=== PATIENT | female | born 1960 | race Caucasian/White ===

== ENCOUNTER → 2017-07-04 | Outpatient (CLI) | payer BC, OTHER ==
[~2017-07-04] VITALS: Ht 177.8 cm; Wt 89.4 kg
[~2017-07-04] MED LIST: BALSALAZIDE PO; FLEXERIL PO; HYDROCODON-ACE1 EAC7 PO; IBUPROFEN 200200 M1 PO; VIVELLE-DOT1 EAC1 TOP
--- NOTE | ~2017-07-04 | HPC ---
[facility] [place] [address] PAIN MANAGEMENT CONSULTATION Name: FRANSISCA PUCKETT Room #: REG [facility].#: [id number] Admission: 07/04/17 Attend Phys: Torey Altamirano DO Discharge: Date of : 62 Report #: [id number] THIS REPORT FOR: //name// CC: Victorina Altamirano DATE OF SERVICE: 07/04/2017 REFERRING PHYSICIAN: Paulina Calvillo MD CHIEF COMPLAINT: Low back pain, right lower extremity pain with paresthesias. HISTORY OF PRESENT ILLNESS: As you know, the patient is a 57-year-old female who reports acute onset of low back pain, right lower extremity pain with paresthesias that presented 04/22/2017. The patient denies any specific known injury, but states that her pain began after a fall while skiing. She states that the pain improved initially with ice therapy, but then began to experience increasing back pain radiating down the leg to her foot. She states that pain begins in the buttock, radiates down the leg, radiates onto the great toe periodically and this is what led to her concern and further followup. She states pain is most bothersome at night, difficulty with sitting down and standing still. She has been in physical therapy twice a week for weeks, this started in April, but has not improved her symptoms. Due to lack of improvement with conservative treatment, the patient was subsequently referred to our clinic for evaluation for suspected lumbar radiculopathy. She indicates pain is constant, describes the pain as aching, numbness, and tingling; places current pain score 6-7/10, daily average at 8-10/10, worst pain has been is 10/10. The patient states that sitting, lying down and repositioning tends to exacerbate symptoms, standing and physical therapy has provided some improvement in symptoms. She has been referred to our clinic to discuss treatment options for suspected lumbar radiculopathy. PAST MEDICAL HISTORY: 1. Low estrogen levels. 2. Chronic colon problems. PAST SURGICAL HISTORY: 1. Neuroma excision. 2. Hysterectomy. SOCIAL HISTORY: The patient denies tobacco, IV or illicit drug use, admits to approximately 1-2 alcoholic beverages per day. 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 She is working, not receiving workmen's compensation nor is she trying to obtain disability benefits. She is unaccompanied at today's visit. She is not in litigation [place] [address] PAIN MANAGEMENT CONSULTATION Name: FRANSISCA PUCKETT [facility] [id number] Admission: 07/04/17 Attend Phys: Torey Altamriano DO Discharge: Date of : 62 Report #: [id number] REVIEW OF SYSTEMS: Positive for wearing corrective eyewear, changes in bowel movements, frequent diarrhea, varicose veins, low back pain, right lower extremity pain with paresthesias. All other review of systems negative per 12-point review of systems other than those listed in history of present illness. PAIN IMPACT SCORE: 50/70 indicating severe interference of daily activities secondary to pain. ALLERGIES: No known drug allergies. CURRENT MEDICATIONS: Balsalazide 750 mg once a day, estradiol 1 patch twice a week, ibuprofen 200 mg every 4 hours, and cyclobenzaprine 10 mg every 3 hours. IMAGING: No imaging available. PHYSICAL EXAMINATION: VITAL SIGNS: Blood pressure 135/89, pulse 89, respiratory rate 16 and unlabored, the patient is 100% on room air, height 5 feet 10 inches tall, weight 197 pounds, BMI calculated 28.3. GENERAL: Well-developed, well-nourished, well-hydrated 57-year-old female, appearing her stated age, placing current pain score somewhere between 8-10/10. HEENT: Normocephalic, atraumatic. Pupils are equal, round, and reactive to light. Extraocular muscles are intact. Sclerae are nonicteric without injection. NEUROLOGIC: Cranial nerves 2-12 are grossly intact. Speech is fluent. The patient deemed an excellent historian. LUNGS: Clear. No wheeze, rhonchi, or rales. CARDIOVASCULAR: Regular. No appreciable gallop, no rub. ABDOMEN: Soft, nontender, nondistended, normoactive bowel sounds. EXTREMITIES: Show no clubbing, no cyanosis, and no edema. MUSCULOSKELETAL: Lower extremity strength appears equal and symmetrical 5/5, some giveaway strength noted with hip flexion, knee extension on the right when compared to left. Seated straight leg raising mildly positive on right. Supine straight leg raising positive right at approximately 30-degree angle. Muscle bulk and tone equal and symmetrical in lower extremities. She is intact to light touch from L1 through S2 dermatomes. Deep tendon reflexes are symmetrical at patella and Achilles. Ankle clonus negative. Babinski is negative. Gait antalgic favoring right lower extremity over left. Lumbar provocation testing met with no increase in pain. ASSESSMENT: 1. Symptomatic lumbar radiculopathy. 2. Chronic intractable pain. [address] [address] PAIN MANAGEMENT CONSULTATION Name: FRANSISCA PUCKETT Room #: REG [facility]#: [id number] Admission: 07/04/17 Attend Phys: Torey Altamirano DO Discharge: Date of : 62 Report #: [id number] PLAN: 1. The patient has been referred to our service with what appears to be lumbar radicular symptoms radiating from the low back down the leg to the great toe on the right. This would follow the L5 dermatomal distribution. We have discussed the possibility of pathology in the lumbar spine responsible for the symptoms, this would include neural foraminal stenosis at the L5-S1 level. There is a possibility that she has a disk protrusion or extrusion at the L4-L5 level impinging upon the L5 nerve root. These would be the most likely sources, I do not feel at the patient's age that she is suffering from central canal stenosis, but this cannot be ruled out. Given the findings on physical exam, I believe her symptoms are more related to a disk herniation or at least protrusion at the L4-L5 level causing impingement on the L5 nerve root given the initiation of pain after a ski injury. We have discussed with the patient treatment options for lumbar radicular pain involving the right L5 nerve root today, the following was discussed. The patient and I discussed treatment options including reinitiation and continuation of physical therapy with concentrated treatment on the L5 nerve root on the right. We discussed medication management with neuropathic pain medications and a consistent nonsteroidal anti-inflammatory to help with pain control as well as reduce any inflammatory process that might be present. We also discussed epidural injections under fluoroscopic guidance to address L5 radicular symptoms. We also discussed a spinal cord stimulator therapy and surgical options. After reviewing the risks and benefits of all proposed treatment options, the patient chose to begin with an epidural injection under fluoroscopic guidance. The patient has requested that we transfer her care to our [facility] office and have the injection provided this Sunday. Apparently, her insurance is out of network to the [facility] office here at [facility]. We will make the transfer for the patient for Sunday to undergo a lumbar epidural injection under fluoroscopic guidance. 2. The patient was provided samples of Gralise, she will begin on a 300 mg dose at night and continue the titration as directed by the Gralise sample pack. She is to watch for side effects of somnolence, decrease in mental acuity, disorientation, confusion, and mental slowing. We will discuss efficacy at our visit 4 days from today at [facility]. 3. We wish to thank the referring physician, Dr. Paulina Calvillo for the opportunity to see this patient in consultation. We will keep you apprised of her response to treatment as we address her lumbar radicular symptoms involving the right lower extremity L5 distribution. Again, we wish to thank you for the opportunity to see this patient in consultation. <ELECTRONICALLY SIGNED> By: Torey Altamirano DO 07/11/17 0810 [id number] Torey Altamirano DO /nt
[2017-07-04 09:22] VITALS: BP 135/89
== END ==
LOC: PAIN 06:59
DX: M54.16 Radiculopathy, lumbar region (principal); G89.4 Chronic pain syndrome; Z90.710 Acquired absence of both cervix and uterus